=== PATIENT | male | born 1960 | race Caucasian/White ===

== ENCOUNTER 2016-09-07 00:12 | Inpatient (IN) | payer OTHER ==
[2016-09-07] MEDS ORDERED: IOPAMIDOL 370 (76%) IV.SOLN 150 ML IV ONE (00:13)
[2016-09-07] MEDS ORDERED: ALBUTEROL/IPRATROPIUM 2.5/0.5 MG 3 ML/EACH DOSE ONE (00:48)
[2016-09-07 01:17] LABS: ABSOLUTE NEUTROPHIL COUNT 11.4 K/mm3 (1.8-7.7); BASO % 0.3 % (0.2-1.0); EOS % 0.1 % (0.9-2.9); HEMATOCRIT 43.7 % (32.0-52.0); HEMOGLOBIN 14.2 gm/l (14.0-18.0); IMM NEUT # 0.1 K/mm3 (0-0.2); IMM NEUT% 0.9 % (0-1); LYMPH # 2.1 (1.0-4.8); LYMPH % 14.3 % (15-45); MEAN CELL VOLUME 87.6 fl (80.0-94.0); MEAN CORPUSCULAR HEMOGLOBIN 28.5 pg (27.0-31.0); MEAN CORPUSCULAR HGB CONC 32.5 g/dl (33.0-37.0); MEAN PLATELET VOLUME 9.6 fl (7.4-10.4); MONO # 1.2 (0.0-0.8); MONO % 8.3 % (4-12); NEUT % 76.1 % (43-75); PLATELET COUNT 311 K/mm3 (130-400); RED CELL DISTRIBUTION WIDTH 14.6 % (11.5-14.5)
[2016-09-07 01:32] LABS: TROPONIN I 0.05 ng/ml (0.0-0.06)
[2016-09-07 01:36] LABS: ALB/GLOB RATIO 1.2 (>1.0); ALBUMIN 3.7 gm/dL (3.5-5.7); CALCIUM 8.7 mg/dL (8.6-10.3); CKMB ISOENZYME 3.3 ng/ml (0.6-6.3)
[2016-09-07 02:30] LABS: PH,URINE 6.5 (5.0-8.0); SPECIFIC GRAVITY 1.015 (1.001-1.030); URINE APPEARANCE CLEAR; URINE BILIRUBIN NEGATIVE (NEGATIVE); URINE BLOOD NEGATIVE (NEGATIVE); URINE COLOR LIGHT YELLOW; URINE GLUCOSE (UA) NEGATIVE (NEGATIVE); URINE LEUKOCYTE ESTERASE NEGATIVE (NEGATIVE); URINE NITRITE NEGATIVE (NEGATIVE); URINE PROTEIN NEGATIVE (NEGATIVE); URINE UROBILINOGEN NORMAL (0-1 mg/dl)
[2016-09-07] MEDS ORDERED: SODIUM CHLORIDE 0.9% 1,000 ML ONE (02:43)
[2016-09-07] MEDS ORDERED: PIPERACILLIN-TAZO PREMIX BAG 50 ML IV ONE (02:44)
[2016-09-07] MEDS ORDERED: SODIUM CHLORIDE 0.9% FLUSH 10 ML ONE (03:16)
[2016-09-07] MEDS ORDERED: BLISTEX LIPSTICK 1 EACH TP PRN (03:51)
[2016-09-07] MEDS ORDERED: DIPHENHYDRAMINE HCL 50 MG/1 ML VIAL IV PRN (03:51)
[2016-09-07] MEDS ORDERED: METOPROLOL TARTRATE 1 MG/ML 5ML VIAL IV PRN (03:51)
[2016-09-07] MEDS ORDERED: NS/Potassium Chlor 20 mEq 1,000 ML IV SCH ×2 (03:51→04:06)
[2016-09-07] MEDS ORDERED: MENTHOL/CETYLPYRD 1 EACH LOZENGE PO PRN (03:51)
[2016-09-07] MEDS ORDERED: LACTATED RINGERS 1,000 ML IV SCH (03:51)
[2016-09-07] MEDS ORDERED: ONDANSETRON 4 MG/2ML 2 ML VIAL IV PRN (03:51)
[2016-09-07 03:57] VITALS: BMI 49.5
--- NOTE | 2016-09-07 04:07 | PDOC36 ---
Provider Note Note: GENERAL SURGERY H&P CC: Abdominal pain HPI: 56yo M with one day of RUQ pain. This started about 8 hours ago and is constant. The pain worsens when he takes a deep breath or cough. It is not associated with food. Of note, the patient was recently treated as an outpatient for pneumonia. He underwent two trials of PO antibiotics (unsure of what name) and was recently given IV steroids and started on PO prednisone (day 2, unsure of dose). He admits to subjective chills, SOB, and RIGHT sided chest pain when coughing. He has intermittent diarrhea normally. He denies any fevers, change in bladder fx, easy brusing/bleeding, unintentional weight loss, or other associated symptoms. ROS: As per HPI. 10 point review of systems performed that is otherwise normal. PMH: HTN, obesity PSH: 2 back surgeries Meds: Lisinopril (not currently taking), prednisone (unknown dose), unknown PO antibiotic All: NKDA SH: Social EtOH, denies tobacco and illicits FH: Mother with cervical cancer, father with COPD Vitals: T 98.8, BP 166/91, HR 86, RR 20, SpO2 94% on RA Physical Exam: General: Comfortable in NAD HEENT: NCAT Heart: RRR Lungs: Audible wheezes with mild increased labor of breathing Abdomen: Soft, obese, ND, moderate RUQ TTP, negative Price's sign Labs: CBC: 14.9/14.2/43.7/311 (76.1% granulocytes) Chem: K 3.3, Cr 0.8, glucose 114, o/w normal LFTs: WNL Lipase: 15 UA: Normal Troponin: 0.05 EKG: NSR with LBBB and left axis deviation Imaging: CTA Chest/CT Abdomen-Pelvis (pre-[place] read only): Prominent nonspecific hilar nodes and small nonspecific mediastinal nodes. No PE. CT A/P without acute findings. RUQ US (pre-[facility] read): gallstones, 3mm GBW, no mention of charmaine-cholecystic fluid , positive sonographic price's sign, 7mm CBD. A/P: 56yo obese M with acute cholecystitis. His clinical picture is complicated by his recent pneumonia and his initiation of corticosteroids. His is getting the info regarding his dosage. In addition, he still has moderate wheezing and mild hypoxia on RA (SpO2 94%). His troponin was normal, but it was not completely negative. Will plan to admit, NPO, IVF, and start IV Zosyn for cholecystitis. Will obtain further data on steroids to assess whether he needs to continue or taper. Will repeat troponin in 6 hours. Will start scheduled duonebs and supplemental O2 for wheezing/hypoxia. Will replace potassium. Will write for PRN metoprolol for hypertension. Anticipate cholecystectomy later today in the next 8-12 hours. Jhoan Scott MD General Surgery
[2016-09-07] MEDS ORDERED: MORPHINE SULFATE 4 MG/ML SYRINGE IV PRN (04:09)
[2016-09-07] MEDS ORDERED: PUMP TUBING ONE (04:12)
[2016-09-07] MEDS: MORPHINE SULFATE 2 MG/ML SYRINGE IV PRN ×2 (04:17→05:19)
[2016-09-07] MEDS: ALBUTEROL/IPRATROPIUM 2.5/0.5 MG 3 ML/EACH DOSE NEB SCH ×7 (04:47→20:21)
--- NOTE | 2016-09-07 08:08 | US ---
Exam: Gallbladder ultrasound COMPARISON: None INDICATION: Right upper quadrant pain. FINDINGS: Gallbladder ultrasound was obtained. Examination is markedly limited due to patient body habitus. Solitary gallstone was identified measuring up to 2.6 cm. The gallbladder is not distended. There is some comet tail artifact from the gallbladder wall reflecting adenomyomatosis. There is no gallbladder wall thickening or pericholecystic fluid. Instructor Physical Education, however, did describe a positive sonographic Price sign. Common bile duct normal at 5 mm. IMPRESSION: Cholelithiasis without definite sonographic features of acute cholecystitis although fashion director did describe a positive sonographic Price's sign. Therefore, acute cholecystitis cannot be excluded. Preliminary report transmitted to the emergency department from [facility] at 0216 hours 09/07/2016.
--- NOTE | 2016-09-07 09:05 | CT ---
Exams: CT angiogram chest with contrast, CT abdomen and pelvis with contrast Comparison: Gallbladder ultrasound 09/07/2016 History: Right upper quadrant pain, worse with coughing. Recently treated for pneumonia. Technique: CT angiogram of the chest was obtained following the administration of 80 mL Isovue-370 intravenous contrast using a CT angiogram pulmonary embolism protocol which was supplemented with multiplanar 3-D reformations constructed at an independent workstation. CT examination of the abdomen and pelvis was obtained in the venous phase of contrast. Findings: There is no evidence of acute pulmonary thromboembolic disease to the proximal subsegmental level. There is a smooth, ovoid soft tissue density within the right infrahilar region which measures up to 2.6 x 1.5 x 1.3 cm. Whether this reflects a prominent infrahilar lymph node, which I favor, versus less likely infrahilar pulmonary nodule is uncertain. Additional prominent lymph nodes are seen in the subcarinal lymph node station measuring up to 10 mm in short axis diameter. The prominent right infrahilar lymph node demonstrates some mass effect on the adjacent bronchiole, and there is minor atelectasis within the right middle lobe. There is no focal airspace disease or pleural effusion. Mild bronchial wall thickening is seen. There is no bronchiectasis or mucous plugging. There is minor colonic diverticulosis without evidence of diverticulitis The bowel is otherwise unremarkable, and there is no bowel obstruction, free air or free intraperitoneal fluid. The appendix is not visualized although there are no secondary findings of acute appendicitis. There is no pelvic lymphadenopathy or fluid collection. Urinary bladder unremarkable. The liver, spleen, pancreas, kidneys, adrenal glands and gallbladder are unremarkable. There is a 10 mm sclerotic lesion within the T12 vertebral body which is of uncertain significance. No additional sclerotic lesions are identified. Degenerative changes are seen as lumbosacral junction. IMPRESSION: 1. Right infrahilar lymphadenopathy, of uncertain etiology, producing some mass effect on the adjacent bronchial with minor atelectasis within the right middle lobe. Mild diffuse bronchial wall thickening. There is no evidence of pneumonia. 2. No evidence of acute pulmonary thromboembolic disease. 3. 10 mm sclerotic lesion at T12 which is of uncertain significance. 4. No acute findings in the abdomen or pelvis. Preliminary report transmitted to the emergency department from [facility] at 0228 hours 09/07/2016.
[2016-09-07] MEDS: PIPERACILLIN SODIUM/TAZOBACTAM 3.375 G in NS 0.9% (MINI-BAG PLUS) 50 ML IV SCH ×2 (09:27→18:02)
[2016-09-07 09:41] LABS: A1C-GLYCOHEMOGLOBIN 0.5 g/dl; HEMOGLOBIN-GLYCO 13.1 g/dl
--- NOTE | 2016-09-07 10:08 | PDOC43 ---
- Subjective Gallbladder ultrasound was obtained. Examination is markedly limited due to patient body habitus. Solitary gallstone was identified measuring up to 2.6 cm. The gallbladder is not distended. There is some comet tail artifact from
the gallbladder wall reflecting adenomyomatosis. There is no gallbladder wall thickening or pericholecystic fluid. Blender Helper, however, did describe a positive sonographic Price sign. Common bile duct normal at 5 mm. IMPRESSION: Cholelithiasis without definite sonographic features of acute cholecystitis although texturing machine fixer did describe a positive sonographic Price's sign. Therefore, acute cholecystitis cannot be excluded. Preliminary report transmitted to the emergency department from [email or web address] at 0216 hours 09/07/2016. A/P: Final RUQ US result as above not c/w acute cholecystitis. This is likely all related to the patient's known underlying pulmonary infection with potential pain from intercoastals due to coughing. Will stop IVF and start regular diet. I have discussed this case with Dr. Acosta Bolden, the hospitalist agriculture extension specialist, who will resume care for this patient. I will sign off. Please call with any questions or concerns. Jhoan Scott MD General Surgeon - Objective Vital Signs Temperature 97.7 F 09/07/16 07:39 Pulse Rate 80 09/07/16 07:54 Respiratory Rate 20 09/07/16 07:39 Blood Pressure 139/96 09/07/16 07:54 O2 Saturation by Pulse Oximetry 95 09/07/16 07:39 Oxygen Delivery Method Nasal Cannula Oxygen Flow Rate 1.5 Laboratory 09/07/16 00:54 09/07/16 00:54 09/07/16 00:54 MCHC 32.5 L RDW 14.6 H D-Dimer 0.62 H Estimated GFR 100 H Active Medication Orders Category Date Time Status Albuterol/Ipratropium 2.5/0.5 [Duoneb] Med 09/07/16 06:00 Active 3 ml NEB Q6HR Diphenhydramine HCl [Benadryl] Med 09/07/16 03:51 Active 12.5 mg IV Q6H PRN Fluticasone/Salmeterol 250/50 [Advair 250/50 Diskus] Med 09/07/16 09:30 Active 0 puff IH BID Lip [place] [Blistex] Med 09/07/16 03:51 Active 1 each TP PRN PRN Menthol/Cetylpyridinium [Cepacol] Med 09/07/16 03:51 Active 1 each PO PRN PRN Metoprolol Tartrate [Lopressor] Med 09/07/16 03:51 Active 5 mg IV Q6H PRN Morphine Sulfate Med 09/07/16 03:51 Active 1 - 4 mg IV Q1H PRN Morphine Sulfate Med 09/07/16 04:09 Active 1 - 4 mg IV Q1H PRN Ondansetron 4 mg/2ml Vial [Zofran] Med 09/07/16 03:51 Active 4 mg IV Q4H PRN Piperacillin Sodium/Tazobactam [Zosyn] 3.375 g Med 09/07/16 08:30 Active Ns 0.9% (Mini-Bag Plus) [Mini-Bag Plus (Ns)] 50 ml IV Q6H Sodium Chloride 0.9% Flush [Normal Saline 10ml Flush] Med 09/07/16 03:51 Active 10 - 50 ml IV PRN PRN Sodium Chloride 0.9% Flush [Normal Saline 10ml Flush] Med 09/07/16 09:00 Active 10 ml IV Q8HR Intake and Output 09/05/16 09/06/16 09/07/16 23:59 23:59 23:59 Output Total 400 Balance -400
[2016-09-07] MEDS ORDERED: FUROSEMIDE 20 MG/2 ML VIAL IV ONE (10:41)
[2016-09-07] MEDS: POTASSIUM CHLORIDE 20 MEQ TAB.PRT.SR PO SCH ×3 (11:30→16:08)
[2016-09-07] MEDS: OXYCODONE HCL 5 MG TABLET PO PRN ×3 (11:30→20:08)
[2016-09-07] MEDS: GUAIFENESIN 600 MG TABLET.DR PO SCH ×2 (11:43→21:14)
[2016-09-07] MEDS: LOSARTAN POTASSIUM 50 MG TABLET PO SCH (11:43)
[2016-09-07] MEDS: FLUTICASONE/SALMETEROL 250/50 14 PUFFS/DISK IH SCH ×2 (11:55→21:13)
[2016-09-07] MEDS: LEVOFLOXACIN 750 MG/D5W 150 ML 750 MG in Premix (D5W) 150 ml Bag 1 EACH IV SCH (16:06)
[2016-09-07] MEDS: METHYLPRED SOD SUCCINATE 125 MG VIAL IV SCH ×2 (16:06→21:14)
--- NOTE | 2016-09-07 16:43 | HP ---
[facility] [id number] DATE OF ADMISSION: September 07, 2016 CHIEF COMPLAINT: Right upper quadrant pain, shortness of breath. HISTORY OF PRESENT ILLNESS: The patient is a 56-year-old male who has had problems with persistent cough starting approximately three weeks ago. He was seen by his primary care provider on August 23, 2016 and on that visit reported the cough started about four days prior around August 18, 2016. At that time it was reported to be productive associated with some chills. He was prescribed a Z-pack. He also was given albuterol. He returned on August 27, 2016 with complaints of no improvement. He was then placed on Augmentin. Chest x-ray was read as normal. He continued to have complaints of cough and wheezing and also some dyspnea with headaches, myalgias and nausea and diarrhea. He returned and was reevaluated on September 04, 2016 at his primary care provider's office and was given prednisone. He was taking the prednisone over the weekend and then presented to the [facility] Emergency Department with complaints of continued cough, breathing difficulties and right upper quadrant abdominal pain which has been getting progressively worse. He reports his abdominal pain is worse with coughing or deep breathing and has been present for over a week but has gotten acutely worse in the last couple of days. His workup in the emergency department included abdominal ultrasound showing gallstones but no evidence of acute cholecystitis. CT of the chest, abdomen and pelvis showed evidence of right infrahilar adenopathy of uncertain etiology and bronchial wall thickening, but no airspace disease and no thromboembolic disease and no acute findings in the pelvis or abdomen. He was initially referred to the general surgeon for suspected acute cholecystitis but after review of his lab and x-ray findings, the hospitalist service was consulted to assume care of the patient who is not felt to have a surgical problem. REVIEW OF SYSTEMS: The patient's review of systems is significant for some subjective chills initially two or three weeks ago, but he has not had any chills or fever in the last week. He denies any nasal congestion or sore throat or ear pain. He has had this cough which has been mainly producing white phlegm, no discolored phlegm recently, although initially he may have had some discoloration. He complains of some right upper quadrant or right lower chest wall pain worse with coughing or deep breathing. He has had some chronic lower extremity edema but no clear symptoms of orthopnea. He denies palpitations. He has had some nausea and a few episodes of vomiting with this chronic cough, and he reports he has had diarrhea for eight years now but it has been worsened by his antibiotic usage. He goes approximately eight times a day, he states. No hematochezia or hematemesis. No new arthralgias. No rashes or recent travel. No urinary complaints. No fainting, blackouts or seizures. He has had a global headache throughout his illness. His review of systems is otherwise negative. PAST MEDICAL HISTORY: Is significant for: 1. Degenerative disc disease. 2. Chronic essential hypertension. 3. Obstructive sleep apnea with chronic respiratory failure on home CPAP for the last three years. He had a sleep study in [place]. He has never had any history of any chronic lung disease or asthma. 4. Morbid obesity. 5. Primary hypogonadism. 6. He has had no recent medical hospitalizations. PAST SURGICAL HISTORY: Significant for: 1. Lumbar laminectomy in July, and also in 2005. 2. He had a colonoscopy in 2001 which was normal. ALLERGIES: NO KNOWN DRUG ALLERGIES. CURRENT MEDICATIONS: 1. He has been treated for high blood pressure in the past with Zestoretic but has been off the medicine for six months due to perceived side effects of the medicine. 2. He has recently been prescribed Advair 250/50 mcg Diskus inhaler for his bronchitis along with guaifenesin with codeine. 3. He has completed a course of Augmentin, Zithromax as I mentioned, and recently started prednisone 50 mg every morning. 4. He has been on testosterone in the past but has not received that in six months or more. FAMILY HISTORY: Unremarkable. SOCIAL HISTORY: He is . He has three children from previous marriage, three from current marriage, totalling six children. No history of smoking, alcohol or illicit drug use. He has had no occupational exposures. 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 He is not around any smoke at work. His primary care provider is Dr. Jhoan Valera with the [facility]. PHYSICAL EXAMINATION: VITAL SIGNS: Body mass index 49.5, weight is 161 kilograms. Temperature is 97.7 this morning, pulse 78, blood pressure initially 165/101, respirations 20, oxygen saturation 94% on room air. Blood pressure this afternoon is down to 123/81 after getting some Lasix. GENERAL: This is an obese male in moderate respiratory distress. HEENT: Shows pupils equal, round, and reactive to light. Extraocular movements are intact. No oral lesions are present. CHEST: Reveal scattered wheezes but fair air flow. CARDIOVASCULAR: Exam reveals a regular rate and rhythm without a murmur. ABDOMEN: Is obese, soft, nontender, nondistended with positive bowel sounds. EXTREMITIES: Show 2+ pitting edema to the knees. He has some chronic venous stasis skin changes in his lower extremities. His pulses are diminished at the dorsalis pedis arteries bilaterally but palpable at 1+. There is no redness or skin breakdown on his lower extremities. LABORATORY STUDIES: Included a CBC with a white blood cell count elevated at 14.9, hemoglobin of 14.2, platelet count of 311,000. D-dimer is elevated at 0.62. Chemistry profile showed a sodium 139, potassium 3.3, carbon dioxide 29, BUN 14, creatinine 0.8, glucose 114, magnesium 2.0. Cardiac enzymes are negative. B-type natriuretic peptide was 106. TSH was 1.78. Urinalysis was unremarkable. Influenza A and B screens are negative. DIAGNOSTIC IMAGING STUDIES: 1. CT of the chest abdomen and pelvis showed no acute process in the abdomen or pelvis, but there is some right infrahilar adenopathy of uncertain etiology which is producing some mass effect on the adjacent bronchial tubes with some mild diffuse bronchial wall thickening. 2. Ultrasound of the abdomen shows a gallstone measuring 2.6 cm. There is no gallbladder distention or gallbladder wall thickening. No bile duct dilatation. ASSESSMENT: 1. Patient has acute bronchitis with wheezing and moderate respiratory distress, evidence of reactive airway disease is present although this is newly diagnosed. He had never had asthma before. 2. He has chronic respiratory failure associated with obstructive sleep apnea and morbid obesity. 3. He has right upper quadrant pain suspect due to abdominal wall strain from his persistent cough. PLAN: 1. At this point, I think the bronchitis is bacterial although he has failed several antibiotic regimens. I am going to treat him with Levaquin and will treat him with solumedrol. We will get peak flow measurements. 2. Concerned about the possibility of possible diastolic heart failure and will get an echocardiogram and give him a trial of Lasix. 3. Venous thromboembolism risk is moderate. Mechanical measures have been prescribed. 4. Further treatment and recommendations will depend on his hospital course. cc: Jhoan Valera M.D.
[2016-09-08] MEDS: METHYLPRED SOD SUCCINATE 125 MG VIAL IV SCH ×4 (04:12→22:32)
[2016-09-08] MEDS: LOSARTAN POTASSIUM 50 MG TABLET PO SCH (08:17)
[2016-09-08] MEDS: GUAIFENESIN 600 MG TABLET.DR PO SCH ×2 (08:17→20:30)
[2016-09-08] MEDS: FLUTICASONE/SALMETEROL 250/50 14 PUFFS/DISK IH SCH ×2 (08:20→20:30)
[2016-09-08] MEDS: ALBUTEROL/IPRATROPIUM 2.5/0.5 MG 3 ML/EACH DOSE NEB SCH ×4 (08:35→20:26)
[2016-09-08] MEDS ORDERED: FLUTICASONE/SALMETEROL 250/50 14 PUFFS/DISK IH SCH (10:00)
--- NOTE | 2016-09-08 11:14 | PDOC43 ---
- Subjective Chief Complaint: RUQ pain and Right rib pain with cough Feeling a little better but still c/o pin in R lower chest and RUQ with cough. Breathing is easier with CPAP on. - Objective Vital Signs Temperature 97.5 F 09/08/16 07:14 Pulse Rate 75 09/08/16 07:14 Respiratory Rate 20 09/08/16 08:25 Blood Pressure 140/87 09/08/16 07:14 O2 Saturation by Pulse Oximetry 94 09/08/16 07:14 Oxygen Delivery Method Room Air Oxygen Flow Rate 0 Intake and Output 09/07/16 09/08/16 09/09/16 06:59 06:59 06:59 Intake Total 1950 1000 Output Total 400 2925 Balance -400 -975 1000 General: Alert, Oriented x3, Cooperative, No Acute Distress HEENT: Mucous membr. moist/pink Lungs: Other (exp wheezes throughout) Cardiovascular: Regular Rate and Rhythm, Murmur (2/6) Abdomen: Soft, Tenderness (mild in RUQ), Normal Bowel Sounds, No Masses Extremities: Edema (trace on left, none on right), Normal Pulses Skin: Normal Color Neurological: Normal Speech Psych/Mental Status: Normal Mood Laboratory 09/07/16 00:54 09/07/16 00:54 09/07/16 06:15 B-Natriuretic Peptide 106 H Current Medications: Current meds reviewed in EMR. - Problems: Assessment/Plan (1) Acute bronchitis Qualifiers: Bronchitis organism: unspecified organism Qualifier Code: (J20.9) Acute bronchitis, unspecified Status: Acute Assessment/Plan: Presumed bacterial and present on admit with RUQ pain exacerbated by cough. Continue Levofloxacin. (2) Reactive airway disease Qualifiers: Asthma severity: unspecified severity Asthma complication type: with acute exacerbation Qualifier Code: (J45.901) Unspecified asthma with (acute ) exacerbation Status: Acute Assessment/Plan: Not previously diagnosed with RAD/Asthma but appears to have significant bronchospasm, continue acute steroid treatment, anticipate change to PO prednisone 09/09. (3) NARA (obstructive sleep apnea) Status: Chronic Assessment/Plan: due to morbid obesity, continue CPAP. (4) Chronic respiratory failure Qualifiers: Respiratory failure complication: hypoxia Qualifier Code: (J96.11) Chronic respiratory failure with hypoxia Status: Chronic Assessment/Plan: Associated with NARA and obesity hypoventilation syndrome. Continue supplemental O2 while sleeping. (5) Morbid obesity with BMI of 45.0-49.9, adult Status: Chronic Assessment/Plan: Contributes to NARA and OHS complicating care. (6) Hypokalemia Status: Acute Assessment/Plan: due to diuresis, replace and follow. (7) DDD (degenerative disc disease), lumbar Status: Chronic Assessment/Plan: Chronic condition, stable. (8) Diarrhea Qualifiers: Diarrhea type: unspecified type Qualifier Code: (R19.7) Diarrhea, unspecified Status: Chronic Assessment/Plan: Chronic, worked up as outpatient. (9) CHF (congestive heart failure) Qualifiers: Congestive heart failure type: diastolic Congestive heart failure chronicity: acute on chronic Qualifier Code: (I50.33) Acute on chronic diastolic (congestive) heart failure Status: Acute Assessment/Plan: Mild (grade 1) diastolic dysfunction on ECHO. Patient responded well to furosemide with diuresis and mild improvement in symptoms, will continue daily furosemide/KCl. On Losartan. VTE Prophylaxis: Mechanical Disposition: Home in 2-3 days
[2016-09-08] MEDS: ALBUTEROL NEB 2.5 MG/3 ML VIAL.NEB NEB PRN (11:34)
[2016-09-08] MEDS: POTASSIUM CHLORIDE 20 MEQ TAB.PRT.SR PO SCH ×2 (11:54→20:30)
[2016-09-08] MEDS: FUROSEMIDE 20 MG TABLET PO SCH (11:54)
[2016-09-08] MEDS: LEVOFLOXACIN 750 MG/D5W 150 ML 750 MG in Premix (D5W) 150 ml Bag 1 EACH IV SCH (15:45)
[2016-09-08] MEDS: OXYCODONE HCL 5 MG TABLET PO PRN (20:30)
[2016-09-09] MEDS: METHYLPRED SOD SUCCINATE 125 MG VIAL IV SCH (04:44)
[2016-09-09] MEDS: ALBUTEROL/IPRATROPIUM 2.5/0.5 MG 3 ML/EACH DOSE NEB SCH ×4 (08:19→20:28)
[2016-09-09 08:38] LABS: CALCIUM 8.7 mg/dL (8.6-10.3)
[2016-09-09] MEDS: FLUTICASONE/SALMETEROL 250/50 14 PUFFS/DISK IH SCH ×2 (08:56→21:36)
[2016-09-09] MEDS: PREDNISONE 20 MG TABLET PO SCH (08:57)
[2016-09-09] MEDS: FUROSEMIDE 20 MG TABLET PO SCH (08:57)
[2016-09-09] MEDS: GUAIFENESIN 600 MG TABLET.DR PO SCH ×2 (08:57→21:37)
[2016-09-09] MEDS: POTASSIUM CHLORIDE 20 MEQ TAB.PRT.SR PO SCH (08:58)
[2016-09-09] MEDS: LOSARTAN POTASSIUM 50 MG TABLET PO SCH (08:58)
[2016-09-09] MEDS: OXYCODONE HCL 5 MG TABLET PO PRN ×2 (10:49→21:39)
[2016-09-09] MEDS: ALBUTEROL NEB 2.5 MG/3 ML VIAL.NEB NEB PRN (11:07)
--- NOTE | 2016-09-09 11:48 | PDOC43 ---
- Subjective Chief Complaint: RUQ pain and Right rib pain with cough Subjective: Reports Adequate Oral Intake, Reports Shortness of Breath (improving ), Reports Abdominal Pain (improving), Denies Fever - Objective Vital Signs Temperature 98.0 F 09/09/16 07:45 Pulse Rate 83 09/09/16 08:20 Respiratory Rate 18 09/09/16 08:20 Blood Pressure 138/90 09/09/16 07:45 O2 Saturation by Pulse Oximetry 95 09/09/16 08:20 Oxygen Delivery Method Room Air Oxygen Flow Rate 0 Intake and Output 09/08/16 09/09/16 09/10/16 06:59 06:59 06:59 Intake Total 1150 3288 Output Total 550 250 Balance 600 3038 General: Alert, Oriented x3, Cooperative, Mild Distress HEENT: Mucous membr. moist/pink Lungs: Other (scattered wheezing) Cardiovascular: Regular Rate and Rhythm Abdomen: Soft, Normal Bowel Sounds, Non-Distended, Other (some discomfort over RUQ along rib margin), No Tenderness Extremities: Edema (improving, now trace) Skin: Warm, Dry, Intact Laboratory 09/09/16 06:30 Current Medications: Current meds reviewed in EMR. - Problems: Assessment/Plan (1) Acute bronchitis Qualifiers: Bronchitis organism: unspecified organism Qualifier Code: (J20.9) Acute bronchitis, unspecified Status: Acute Assessment/Plan: Presumed bacterial and present on admit with RUQ pain exacerbated by cough. Continue Levofloxacin. (2) Reactive airway disease Qualifiers: Asthma severity: unspecified severity Asthma complication type: with acute exacerbation Qualifier Code: (J45.901) Unspecified asthma with (acute ) exacerbation Status: Acute Assessment/Plan: Not previously diagnosed with RAD/Asthma but appears to have significant bronchospasm, continue acute steroid treatment, on PO prednisone today, peak flows improving, up to 270 this am. (3) CHF (congestive heart failure) Qualifiers: Congestive heart failure type: diastolic Congestive heart failure chronicity: acute on chronic Qualifier Code: (I50.33) Acute on chronic diastolic (congestive) heart failure Status: Acute Assessment/Plan: Mild (grade 1) diastolic dysfunction on ECHO. Patient responded well to furosemide with diuresis and mild improvement in symptoms, will continue daily furosemide/KCl. On Losartan. (4) Hypokalemia Status: Acute Assessment/Plan: improved (5) Chronic respiratory failure Qualifiers: Respiratory failure complication: hypoxia Qualifier Code: (J96.11) Chronic respiratory failure with hypoxia Status: Chronic Assessment/Plan: Associated with NARA and obesity hypoventilation syndrome. Continue PRN supplemental O2 while sleeping. (6) NARA (obstructive sleep apnea) Status: Chronic Assessment/Plan: due to morbid obesity, continue CPAP. (7) DDD (degenerative disc disease), lumbar Status: Chronic Assessment/Plan: Chronic condition, stable. (8) Diarrhea Qualifiers: Diarrhea type: unspecified type Qualifier Code: (R19.7) Diarrhea, unspecified Status: Chronic Assessment/Plan: Chronic, worked up as outpatient. (9) Morbid obesity with BMI of 45.0-49.9, adult Status: Chronic Assessment/Plan: Contributes to NARA and OHS complicating care. (10) Hilar adenopathy Status: Acute Assessment/Plan: possibly due to bacterial bronchitis-should have follow up with pulmonary to ensure resolution VTE Prophylaxis: Mechanical Disposition: Home in am most likely, may need nebulizer and outpatient pulmonary follow up
[2016-09-09] MEDS ORDERED: PUMP TUBING ONE (15:42)
[2016-09-09] MEDS ORDERED: SODIUM CHLORIDE 0.9% 100 ML IV ONE (15:42)
[2016-09-09] MEDS: LEVOFLOXACIN 750 MG/D5W 150 ML 750 MG in Premix (D5W) 150 ml Bag 1 EACH IV SCH (15:50)
[2016-09-10 06:02] LABS: ABSOLUTE NEUTROPHIL COUNT 12.7 K/mm3 (1.8-7.7); BASO # 0.1 K/mm3 (0.0-0.2); BASO % 0.4 % (0.2-1.0); HEMATOCRIT 41.6 % (32.0-52.0); HEMOGLOBIN 13.6 gm/l (14.0-18.0); IMM NEUT # 0.3 K/mm3 (0-0.2); LYMPH # 2.2 (1.0-4.8); LYMPH % 13.4 % (15-45); MEAN CELL VOLUME 88.7 fl (80.0-94.0); MEAN CORPUSCULAR HGB CONC 32.7 g/dl (33.0-37.0); MEAN PLATELET VOLUME 9.7 fl (7.4-10.4); MONO # 1.4 (0.0-0.8); MONO % 8.3 % (4-12); NEUT % 75.9 % (43-75); PLATELET COUNT 297 K/mm3 (130-400); RED CELL DISTRIBUTION WIDTH 15.5 % (11.5-14.5)
[2016-09-10] MEDS: ALBUTEROL/IPRATROPIUM 2.5/0.5 MG 3 ML/EACH DOSE NEB SCH ×3 (07:51→13:38)
[2016-09-10] MEDS ORDERED: POTASSIUM CHLORIDE 20 MEQ TAB.PRT.SR PO SCH (09:00)
--- NOTE | 2016-09-10 09:15 | DS ---
Antoine Warren [id number] DATE OF ADMISSION: September 07, 2016 DATE OF DISCHARGE: September 10, 2016 DISCHARGE DIAGNOSES: 1. Acute bronchitis presumed to bacterial. 2. Reactive airway disease/adult onset asthma. 3. Obstructive sleep apnea with chronic respiratory failure. 4. Morbid obesity. 5. Right upper quadrant abdominal pain due to muscle strain. 6. Chronic essential hypertension. 7. Hypokalemia. 8. Chronic diarrhea. 9. Degenerative disc disease. 10. Cholelithiasis. 11. Hilar Adenopathy PROCEDURES PERFORMED DURING THE HOSPITALIZATION: Included a CT of the chest, abdomen, and pelvis as well as an abdominal ultrasound. The CT of the chest showed right infrahilar adenopathy of uncertain significance with a mass effect on the adjacent bronchi and minor atelectasis of the right middle lobe. He had diffuse bronchial wall thickening, but no evidence of pneumonia. No evidence of thromboembolic disease. He had evidence of a 2.6 cm gallstone in the gallbladder, but no sonographic evidence of acute cholecystitis. His echocardiogram showed a normal ejection fraction of 55% to 60%, a normal left ventricular size and function. TO SUMMARIZE THE ADMISSION AND HOSPITAL COURSE: The patient is a 56-year-old male who presented with complaints of right upper quadrant pain and shortness of breath. He has had a persistent cough which began 3 to 4 weeks prior to admission. He had been prescribed a Z-Josemanuel and Augmentin and most recently prednisone without significant improvement. On evaluation in the emergency department he was dyspneic. He was afebrile. He was hypertensive with a blood pressure of 165/101. Oxygen saturations were normal in the range of 94% on room air, but he was noted to have marked wheezing and reduced peak low down to 150. He also had 2+ pitting edema in his lower extremities. CBC showed a white blood cell count mildly elevated at 14.9. D-dimer was elevated at 0.62. Potassium mildly reduced at 3.3. TSH was normal. B-type natiuretic peptide was 106. Influenza screens were negative. He was admitted to the hospitalist service and treated for acute bacterial bronchitis with Levaquin. He was also treated with Solu-Medrol IV. There was some concerns about possible diastolic heart failure and he was treated with Lasix. His echocardiogram did not support that diagnosis, but he was continued on Lasix because of his chronic lower extremity edema. For his hypertension he was started on Cozaar 50 mg daily which he tolerated well. He remained afebrile throughout his stay. His bronchospasm gradually improved with the steroids. His peak flow measures were up to 300 on the day of discharge. He was felt to be medically stable for discharge on September 10. PHYSICAL EXAMINATION: VITALS: Showed a temperature of 98.3, pulse 91, blood pressure 155/99, respirations 20, oxygen saturation is 97% on room air. Body mass index is 49.5, weight is 161 kg. GENERAL: This is a obese male in mild respiratory distress. HEENT: Unremarkable. LUNGS: Reveal markedly improved air movement, but some scattered wheezes. CARDIOVASCULAR: Revealed a regular rate and rhythm without a murmur. EXTREMITIES: Lower extremities showed trace lower extremity edema. LABORATORY STUDIES: Metabolic panel done on September 09 showed a potassium of 4.1, creatinine 0.9. CBC performed today showed a white blood cells count elevated at 16.7, platelet count of 297,000 with normal differential thought to be due to steroid effects. DISPOSITION: Home. DISCHARGE CONDITION: Good. DISCHARGE MEDICATIONS: He is prescribed: 1. Albuterol nebs 2.5mg/3mL, 2.5 mg nebulized every 4 hours as needed for wheezing. 2. Lasix 20 mg daily, 30 pills no refills. 3. Levaquin 750 mg daily for 5 days. 4. Cozaar 50 mg daily, 30 pills, no refills. 5. Oxycodone 5 to 10 mg every 3 hours as needed for severe pain, 12 pills, no refills. 6. Potassium 10 mEq daily to prevent low potassium on the Lasix. 7. Prednisone taper starting at 40 mg daily for 3 days, then 20 mg daily for 3 days, and then 10 mg daily for 4 days. He is going to resume his previous home medications which included: 1. Advair diskus inhaler 250/50 mcg one inhalation twice daily. 2. Guiatuss with codeine 5 mL every 6 hours as needed for cough. DISCHARGE INSTRUCTIONS: He is being referred to [facility] and he is also going to follow up with his primary care provider, Dr. Jhoan Valera at the [facility]. JOB: [id number] CC: [facility] Dr. Jhoan Valera
[2016-09-10] MEDS: FUROSEMIDE 20 MG TABLET PO SCH (09:22)
[2016-09-10] MEDS: FLUTICASONE/SALMETEROL 250/50 14 PUFFS/DISK IH SCH (09:22)
[2016-09-10] MEDS: OXYCODONE HCL 5 MG TABLET PO PRN (09:22)
[2016-09-10] MEDS: GUAIFENESIN 600 MG TABLET.DR PO SCH (09:22)
[2016-09-10] MEDS: LOSARTAN POTASSIUM 50 MG TABLET PO SCH (09:22)
[2016-09-10] MEDS: PREDNISONE 20 MG TABLET PO SCH (09:22)
[2016-09-10 15:36] VITALS: BP 151/90
== END 2016-09-10 16:30 | disposition home or self-care (01) | DRG 444 ==
LOC: ED 00:12 → MS 02:38 → SDC 02:48 → MS 03:12 → SDC 03:12 → MS 17:38 → UNDOFXSDCRRACCOM 17:43 → SDC 09-08 10:56 → MS 09-08 10:56 → SDC 09-08 11:01 → MS 09-08 11:01 → SDC 09-08 11:03
PROVIDERS: ADMIT Family Medicine; ATTEND Surgery
DX: K80.00 Calculus of gallbladder with acute cholecystitis without obstruction (principal); I50.33 Acute on chronic diastolic (congestive) heart failure; J96.10 Chronic respiratory failure, unspecified whether with hypoxia or hypercapnia; E23.0 Hypopituitarism; Z68.42 Body mass index [BMI] 45.0-49.9, adult; G47.33 Obstructive sleep apnea (adult) (pediatric); E66.01 Morbid (severe) obesity due to excess calories; I11.0 Hypertensive heart disease with heart failure; J45.909 Unspecified asthma, uncomplicated; E87.6 Hypokalemia; R19.7 Diarrhea, unspecified; R59.9 Enlarged lymph nodes, unspecified; M51.36 Other intervertebral disc degeneration, lumbar region

== ENCOUNTER 2016-10-04 20:34 | Emergency (ER) | payer OTHER ==
[2016-10-04 21:02] LABS: ABSOLUTE NEUTROPHIL COUNT 5.2 K/mm3 (1.8-7.7); BASO # 0.1 K/mm3 (0.0-0.2); BASO % 0.6 % (0.2-1.0); EOS # 0.3 (0.0-0.5); EOS % 3.2 % (0.9-2.9); HEMATOCRIT 41.4 % (32.0-52.0); HEMOGLOBIN 13.7 gm/l (14.0-18.0); IMM NEUT # 0.1 K/mm3 (0-0.2); IMM NEUT% 0.6 % (0-1); LYMPH # 2.1 (1.0-4.8); LYMPH % 24.9 % (15-45); MEAN CELL VOLUME 89.4 fl (80.0-94.0); MEAN CORPUSCULAR HEMOGLOBIN 29.6 pg (27.0-31.0); MEAN CORPUSCULAR HGB CONC 33.1 g/dl (33.0-37.0); MEAN PLATELET VOLUME 9.4 fl (7.4-10.4); MONO # 0.7 (0.0-0.8); MONO % 8.8 % (4-12); NEUT % 61.9 % (43-75); PLATELET COUNT 283 K/mm3 (130-400); RED CELL DISTRIBUTION WIDTH 14.1 % (11.5-14.5)
[2016-10-04 21:20] LABS: ALBUMIN 3.5 gm/dL (3.5-5.7); CALCIUM 8.7 mg/dL (8.6-10.3)
[2016-10-04 21:23] LABS: TROPONIN I 0.04 ng/ml (0.0-0.06)
[2016-10-04 21:26] LABS: CKMB ISOENZYME 2.1 ng/ml (0.6-6.3)
[2016-10-04] MEDS ORDERED: ALBUTEROL/IPRATROPIUM 2.5/0.5 MG 3 ML/EACH DOSE ONE (21:43)
--- NOTE | 2016-10-05 07:24 | RAD ---
History: Chest pressure. Dyspnea. Comparison: None. Technique: 2 views Findings: Multilevel thoracic degenerative changes are present. The heart size is within expected for technique. No infiltrate, effusion or pneumothorax is visualized. The hilar and mediastinal structures are intact. Impression: 1. No active intra-thoracic disease.
== END 2016-10-04 23:10 | disposition home or self-care (01) ==
LOC: ED 20:34
DX: R06.00 Dyspnea, unspecified (principal); I10 Essential (primary) hypertension; E66.9 Obesity, unspecified; Z79.899 Other long term (current) drug therapy